=== PATIENT | male | born 1940 | race Caucasian/White ===

== ENCOUNTER 2017-10-13 23:22 | Emergency (ER) | payer OTHER ==
[~2017-10-13] VITALS: Ht 180.3 cm; Wt 81.6 kg
[2017-10-14 00:30] VITALS: BP 148/80
[2017-10-14] MEDS ORDERED: TOPROL XL25 M1 PO (00:34)
[2017-10-14] MEDS ORDERED: OMEPRAZOLE20 M3 PO (00:34)
[2017-10-14] MEDS ORDERED: LISINOPRIL2.5 M1 PO (00:34)
[2017-10-14] MEDS ORDERED: AMLODIPINE BESYL5 M1 PO (00:34)
[2017-10-14] MEDS ORDERED: VITAMIN C500 M7 PO (00:35)
[2017-10-14] MEDS ORDERED: CALCIUM PO (00:35)
[2017-10-14] MEDS ORDERED: LIPITOR80 M1 PO (00:35)
[2017-10-14] MEDS ORDERED: TYLENOL WITH C1 EACH PO (00:36)
[2017-10-14] MEDS ORDERED: CENTRUM SILVER1 EAC4 PO (00:36)
[2017-10-14] MEDS ORDERED: ASPIRIN81 M4 PO (00:36)
[2017-10-14] MEDS ORDERED: PERCOCET 5-3251 EACH PO (01:06)
--- NOTE | 2017-10-14 01:08 | ED THROAT/DENTAL COMPLAINT ---
History of Present Illness General Chief Complaint: Sore Throat, Dental Pain Stated Complaint: " I HAVE A IMPACTED TOOH" CARDIAC HX Source: patient, old records Exam Limitations: no limitations Vital Signs & Intake/Output Vital Signs & Intake/Output Vital Signs Date Time Temp Pulse Resp B/P B/P Pulse O2 O2 Flow FiO2 Mean Ox Delivery Rate 10/14 0030 98.4 74 20 148/80 95 Room Air Allergies Coded Allergies: bee venom protein (honey bee) (Intermediate, HIVES 10/14/17) shellfish derived (Intermediate, HIVES 10/14/17) Penicillins (PEDIATRIC ALLERGY 10/14/17) ibuprofen ("RAISES BP" 10/14/17) Reconcile Medications Amlodipine Besylate 5 MG TABLET 1 TAB PO DAILY HTN/NI (Reported) Ascorbic Acid (Vitamin C) 500 MG CAPSULE.ER 2 CAP PO DAILY SUPPLEMENT ( Reported) Aspirin (Aspirin*) 81 MG TAB.CHEW 1 TAB PO DAILY HEART HEALTH (Reported) Atorvastatin Calcium (Lipitor) 80 MG TABLET 1 TAB PO DAILY HIGH CHOLESTERSOL (Reported) [CALCIUM] 80 MG PO DAILY SUPPLEMENT (Reported) Lisinopril 2.5 MG TABLET 1 TAB PO DAILY HTN (Reported) Metoprolol Succ XL (Toprol XL) 25 MG TAB 1 TAB PO DAILY HTN/IL (Reported) Multivit-Min/FA/Lycopen/Lutein (Centrum Silver Men Tablet) 300 MCG-600 MCG-300 MCG TABLET 1 TAB PO DAILY SUPPLEMENT (Reported) Omeprazole 20 MG TABLET.DR 1 TAB PO DAILY GERD (Reported) Oxycodone HCl/Acetaminophen (Percocet 5-325 MG Tablet) 5 MG-325 MG TABLET 1-2 TAB PO Q6H PRN severe pain Tylenol With Codeine (Tylenol With Codeine #3 Tablet) 300 MG-30 MG TABLET 1 TAB PO Q4-6 PRN PRN DENTAL PAIN (Reported) Core Measure Meds Pre-Hospital aspirin Triage Note: TRIAGE: PATIENT TO ER FROM HOME REPORTS IMPACTED TOOTH TO R SIDE, SAW DENTIST YESTERDAY. REPORTS D/T HX [place] AND ON THINNERS, NEEDS TO BE OFF HIS THINNERS FOR ORAL SURGERY, DENTIST INFORMED CARDIOLOGY. PATIENT GIVEN CODIENE W/O RELIEF. Triage Nurses Notes Reviewed? yes Onset: Last week Duration: constant, continues in ED Timing: recent history Severity: moderate Modifying Factors: Worsens With: eating. HPI: 1 day prior to admission the patient was at the dentist for broken right upper molar. There plan is for operative management. He was prescribed Tylenol with Codeine it is not controlling the pain. He denies fever chills nausea vomiting diarrhea abdominal pain chest pain shortness breath headache dysuria rash bleeding Past History Travel History Traveled to [place] past 21 day No Medical History Any Pertinent Medical History? see below for history Neurological: NONE EENT: NONE Cardiovascular: hypertension, hyperlipidemia, myocardial infarction Respiratory: NONE Gastrointestinal: GERD Hepatic: NONE Renal: NONE Musculoskeletal: NONE Psychiatric: NONE Endocrine: NONE Blood Disorders: NONE Cancer(s): NONE TEACHER OF THE DEAF/HARD OF HEARING/Reproductive: NONE Surgical History Surgical History: non-contributory Psychosocial History What is your primary language Ethiopian Tobacco Use: Refused to answer Family History Hx Contributory? No Review of Systems Review of Systems Constitutional: Reports: no symptoms. EENTM: Reports: see HPI, tooth pain. Respiratory: Reports: no symptoms. Cardiovascular: Reports: no symptoms. GI: Reports: no symptoms. Genitourinary: Reports: no symptoms. Musculoskeletal: Reports: no symptoms. Skin: Reports: no symptoms. Neurological/Psychological: Reports: no symptoms. Hematologic/Endocrine: Reports: no symptoms. Immunologic/Allergic: Reports: no symptoms. All Other Systems: Reviewed and Negative Physical Exam Physical Exam General Appearance: well developed/nourished, alert, awake, comfortable Head: atraumatic, normal appearance Eyes: Bilateral: normal appearance, PERRL, EOMI. Ears: Bilateral: canal normal, Tympanic normal. Nose: normal inspection Mouth/Throat: pharynx normal, Fracture right upper molar Neck: normal inspection, supple, full range of motion, trachea midline Cardiovascular/Respiratory: normal breath sounds, normal peripheral pulses, regular rate/rhythm, no respiratory distress Back: normal inspection, normal range of motion Neurologic/Psych: no motor/sensory deficits, awake, alert, oriented x 3, normal gait, normal mood/affect Skin: intact, normal color, warm/dry Core Measures ACS in differential dx? No Sepsis Present: No Sepsis Focused Exam Completed? No Progress Differential Diagnosis: carious tooth, odontogenic abscess, tooth fracture Plan of Care: Current Medications Sig/Wilfredo Start time Last Medication Dose Stop Time Status Admin Oxycodone/ 1 TAB ONCE ONE 10/14 0115 UNVr Acetaminophen 10/14 0116 (Percocet) Departure Departure Time of Disposition: 104 Disposition: HOME OR SELF CARE Condition: Stable Clinical Impression Primary Impression: Tooth fracture Referrals: Dagoberto JAY,Tadeo Yun (PCP/Family) Departure Forms: Customer Survey General Discharge Information Prescriptions: Current Visit Scripts Oxycodone HCl/Acetaminophen (Percocet 5-325 MG Tablet) 1-2 TAB PO Q6H PRN severe pain #15 TAB
== END 2017-10-14 01:14 ==
LOC: ERH 23:22
DX: S02.5XXA Fracture of tooth (traumatic), initial encounter for closed fracture (principal); X58.XXXA Exposure to other specified factors, initial encounter; Y92.9 Unspecified place or not applicable; Y93.9 Activity, unspecified; I10 Essential (primary) hypertension; K21.9 Gastro-esophageal reflux disease without esophagitis; E78.5 Hyperlipidemia, unspecified